=== PATIENT | male | born 1985 | race Two or more races ===

== ENCOUNTER 2017-02-16 10:16 | Emergency (ER) | payer OTHER ==
[~2017-02-16] VITALS: Ht 167.6 cm; Wt 74.8 kg
[2017-02-16 10:23] VITALS: BP 132/68
== END 2017-02-16 10:39 | disposition home or self-care (01) ==
LOC: ER 10:17
DX: M54.9 Dorsalgia, unspecified (principal); J06.9 Acute upper respiratory infection, unspecified; M79.604 Pain in right leg; F17.210 Nicotine dependence, cigarettes, uncomplicated
CPT/HCPCS: 99283; 99406; A4606; Z7610

== ENCOUNTER 2017-03-16 22:34 | Emergency (ER) | payer OTHER ==
[~2017-03-16] VITALS: Ht 175.3 cm; Wt 77.1 kg
[2017-03-16 22:38] VITALS: BP 134/86
== END 2017-03-16 23:03 | disposition home or self-care (01) ==
LOC: ER 22:36
DX: M54.5 Low back pain (principal); M79.661 Pain in right lower leg; F17.200 Nicotine dependence, unspecified, uncomplicated
CPT/HCPCS: A4606; Z7502; Z7610

== ENCOUNTER 2017-05-24 20:54 | Emergency (ER) | payer OTHER ==
[~2017-05-24] VITALS: Ht 175.3 cm; Wt 77.1 kg
[2017-05-24 21:10] VITALS: BP 143/90
== END 2017-05-24 22:46 | disposition home or self-care (01) ==
LOC: ER 20:54
DX: Z76.0 Encounter for issue of repeat prescription (principal); F17.200 Nicotine dependence, unspecified, uncomplicated
CPT/HCPCS: 99283; 99406; A4606; Z7610

== ENCOUNTER 2017-09-12 22:28 | Emergency (ER) | payer OTHER ==
[~2017-09-12] VITALS: Ht 180.3 cm; Wt 77.1 kg
[2017-09-12 22:32] VITALS: BP 127/81
[2017-09-12] MEDS ORDERED: HYDROCODONE/APAP 10/325MG 1 EA TABLET PO ONE (23:00)
[2017-09-12] MEDS ORDERED: ONDANSETRON 4 MG TAB.RAPDIS SL ONE (23:00)
[2017-09-12] MEDS ORDERED: ONDANSETRON 4 MG TAB.RAPDIS ONE (23:02)
[2017-09-12] MEDS ORDERED: HYDROCODONE/APAP 10/325MG 1 EA TABLET ONE (23:02)
== END 2017-09-12 23:13 | disposition home or self-care (01) ==
LOC: ER 22:28
DX: S80.11XA Contusion of right lower leg, initial encounter (principal); F17.200 Nicotine dependence, unspecified, uncomplicated; Z98.890 Other specified postprocedural states; W18.39XA Other fall on same level, initial encounter; Y93.66 Activity, soccer; Y92.89 Other specified places as the place of occurrence of the external cause; Y99.8 Other external cause status
CPT/HCPCS: A4606; Q0162; Z7610

== ENCOUNTER 2018-01-13 15:59 | Emergency (ER) | payer OTHER ==
[~2018-01-13] VITALS: Ht 180.3 cm; Wt 74.8 kg
[2018-01-13 16:07] VITALS: BP 151/81
[2018-01-13] MEDS ORDERED: IBUPROFEN 600 MG TABLET PO ONE (16:28)
[2018-01-13] MEDS: IBUPROFEN 600 MG TABLET PO ONE (16:34)
== END 2018-01-13 16:36 | disposition home or self-care (01) ==
LOC: ER 16:02
DX: M54.31 Sciatica, right side (principal); Z98.890 Other specified postprocedural states
CPT/HCPCS: 99283; A4606; Z7610

== ENCOUNTER 2018-08-08 16:07 | Emergency (ER) | payer MEDICAID, OTHER ==
[~2018-08-08] VITALS: Ht 177.8 cm; Wt 77.1 kg
[2018-08-08 16:44] VITALS: BP 143/91
[2018-08-08] MEDS ORDERED: ACETAMINOPHEN 325 MG TABLET ONE (17:47)
[2018-08-08] MEDS: ACETAMINOPHEN 325 MG TABLET PO ONE ×2 (17:49→17:55)
[2018-08-08 18:12] LABS: APPEARANCE,URINE Clear (CLEAR); BILIRUBIN,URINE Negative (NEGATIVE); BLOOD, URINE Negative Ery/uL (NEGATIVE); COLOR,URINE Yellow (YELLOW); KETONES,URINE Negative (NEGATIVE); LEUKOCYTE ESTERASE ,URINE Negative (NEGATIVE); NITRITE, URINE Negative (NEGATIVE); PH,URINE 5.5 (5.0-8.0); PROTEIN,URINE Negative (NEGATIVE); UGLUCOSE Negative (NEGATIVE); UROBILINOGEN,URINE 0.2 EU/dL (0.2)
== END 2018-08-08 18:31 | disposition home or self-care (01) ==
LOC: ER 16:13
DX: S39.83XA Other specified injuries of pelvis, initial encounter (principal); F10.10 Alcohol abuse, uncomplicated; F17.200 Nicotine dependence, unspecified, uncomplicated; Y90.9 Presence of alcohol in blood, level not specified; Z98.890 Other specified postprocedural states; Z60.2 Problems related to living alone; W23.0XXA Caught, crushed, jammed, or pinched between moving objects, initial encounter; Y93.89 Activity, other specified; Y92.000 Kitchen of unspecified non-institutional (private) residence as the place of occurrence of the external cause; Y99.8 Other external cause status
CPT/HCPCS: 76870-TC; 81000-TC

== ENCOUNTER 2018-11-01 13:22 | Emergency (ER) | payer MEDICAID, OTHER ==
[~2018-11-01] VITALS: Ht 177.8 cm; Wt 75.7 kg
[2018-11-01 13:51] VITALS: BP 148/94
--- NOTE | 2018-11-01 14:34 | NUR ---
For discharge Patient discharged to home in stable condition. Written and verbal after care instructions given. Patient verbalizes understanding of instruction.
== END 2018-11-01 14:33 | disposition home or self-care (01) ==
LOC: ER 13:22
DX: M79.18 Myalgia, other site (principal); G89.29 Other chronic pain; M79.651 Pain in right thigh; Z98.890 Other specified postprocedural states; F10.10 Alcohol abuse, uncomplicated; F17.200 Nicotine dependence, unspecified, uncomplicated; Y90.9 Presence of alcohol in blood, level not specified

== ENCOUNTER 2018-11-13 11:39 | Emergency (ER) | payer OTHER ==
[~2018-11-13] VITALS: Ht 175.3 cm; Wt 77.1 kg
[2018-11-13 12:06] VITALS: BP 127/100
--- NOTE | 2018-11-13 12:41 | NUR ---
Patient discharged to home in stable condition. Written and verbal after care instructions given. Patient verbalizes understanding of instruction.
== END 2018-11-13 12:40 | disposition home or self-care (01) ==
LOC: ER 11:39
DX: G89.29 Other chronic pain (principal); M79.604 Pain in right leg; F17.200 Nicotine dependence, unspecified, uncomplicated; Z98.890 Other specified postprocedural states

== ENCOUNTER 2018-12-04 13:55 | Emergency (ER) | payer OTHER ==
[~2018-12-04] VITALS: Ht 175.3 cm; Wt 74.8 kg
[2018-12-04 14:14] VITALS: BP 131/81
[2018-12-04] MEDS ORDERED: HYDROCODONE/APAP 5/325MG 1 EACH TABLET ONE (14:29)
[2018-12-04] MEDS ORDERED: HYDROCODONE/APAP 5/325MG 1 EACH TABLET PO ONE (14:30)
== END 2018-12-04 15:53 | disposition home or self-care (01) ==
LOC: ER 13:55
DX: G89.29 Other chronic pain (principal); M79.604 Pain in right leg; F17.200 Nicotine dependence, unspecified, uncomplicated; Z98.890 Other specified postprocedural states; W01.0XXA Fall on same level from slipping, tripping and stumbling without subsequent striking against object, initial encounter; Y93.89 Activity, other specified; Y92.89 Other specified places as the place of occurrence of the external cause; Y99.8 Other external cause status
CPT/HCPCS: 73552

== ENCOUNTER 2019-03-01 15:01 | Emergency (ER) | payer OTHER ==
[~2019-03-01] VITALS: Ht 175.3 cm; Wt 77.1 kg
[2019-03-01 15:08] VITALS: BP 134/83
--- NOTE | 2019-03-01 15:14 | NUR ---
PT CAME INTO THE ED COMPLAINING OF L LEG PAIN 01/19. PT AAOX4, VSS, BREATHING EVEN AND UNLABORED W/ NAD. PT CONNECTED TO THE MONITOR.
--- NOTE | 2019-03-01 15:41 | NUR ---
Patient discharged to home in stable condition. Written and verbal after care instructions given. Patient verbalizes understanding of instruction.
== END 2019-03-01 15:44 | disposition home or self-care (01) ==
LOC: ER 15:02
DX: G89.29 Other chronic pain (principal); M79.661 Pain in right lower leg; Z98.890 Other specified postprocedural states

== ENCOUNTER 2019-03-27 12:33 | Emergency (ER) | payer SELFPAY ==
[~2019-03-27] VITALS: Ht 177.8 cm; Wt 74.8 kg
[2019-03-27 12:39] VITALS: BP 147/91
--- NOTE | 2019-03-27 12:49 | NUR ---
MICHAEL FIGUEREDO AT BEDSIDE FOR EVAL.
--- NOTE | 2019-03-27 12:54 | NUR ---
Patient discharged to home in stable condition. Written and verbal after care instructions given. Patient verbalizes understanding of instruction.
== END 2019-03-27 12:57 | disposition home or self-care (01) ==
LOC: ER 12:40
DX: M54.5 Low back pain (principal); G89.29 Other chronic pain; F10.10 Alcohol abuse, uncomplicated; Y90.9 Presence of alcohol in blood, level not specified; Z98.890 Other specified postprocedural states

== ENCOUNTER 2019-04-04 13:08 | Emergency (ER) | payer SELFPAY ==
[~2019-04-04] VITALS: Ht 177.8 cm; Wt 74.8 kg
[2019-04-04 13:36] VITALS: BP 134/78
--- NOTE | 2019-04-04 13:40 | NUR ---
MICHAEL FIGUEREDO AT BEDSIDE FOR EVAL.
[2019-04-04] MEDS ORDERED: HYDROCODONE/APAP 5/325MG 1 EACH TABLET ONE (13:43)
[2019-04-04] MEDS ORDERED: HYDROCODONE/APAP 5/325MG 1 EACH TABLET PO ONE (14:00)
--- NOTE | 2019-04-04 14:06 | NUR ---
Patient discharged to home in stable condition. Written and verbal after care instructions given. Patient verbalizes understanding of instruction.
== END 2019-04-04 14:07 | disposition home or self-care (01) ==
LOC: ER 13:08
DX: M54.5 Low back pain (principal); G89.29 Other chronic pain; F10.10 Alcohol abuse, uncomplicated; Y90.9 Presence of alcohol in blood, level not specified; Z76.0 Encounter for issue of repeat prescription; Z98.890 Other specified postprocedural states

== ENCOUNTER 2019-04-22 16:54 | Emergency (ER) | payer MEDICAID, OTHER ==
[~2019-04-22] VITALS: Ht 175.3 cm; Wt 77.1 kg
[2019-04-22 17:13] VITALS: BP 158/93
[2019-04-22] MEDS ORDERED: HYDROCODONE/APAP 10/325MG 1 EA TABLET ONE (17:43)
[2019-04-22] MEDS ORDERED: HYDROCODONE/APAP 10/325MG 1 EA TABLET PO ONE (18:00)
== END 2019-04-22 17:48 | disposition home or self-care (01) ==
LOC: ER 17:01
DX: G89.29 Other chronic pain (principal); M79.604 Pain in right leg; Z98.890 Other specified postprocedural states

== ENCOUNTER 2019-06-25 12:36 | Emergency (ER) | payer OTHER ==
[~2019-06-25] VITALS: Ht 175.3 cm; Wt 77.1 kg
[2019-06-25 12:44] VITALS: BP 160/92
--- NOTE | 2019-06-25 13:06 | NUR ---
Patient discharged to home in stable condition. Written and verbal after care instructions given. Patient verbalizes understanding of instruction.
== END 2019-06-25 13:07 | disposition home or self-care (01) ==
LOC: ER 12:38
DX: G89.29 Other chronic pain (principal); M54.9 Dorsalgia, unspecified; Z76.0 Encounter for issue of repeat prescription; Z98.890 Other specified postprocedural states

== ENCOUNTER 2019-07-20 13:00 | Emergency (ER) | payer OTHER ==
[~2019-07-20] VITALS: Ht 170.2 cm; Wt 74.8 kg
[2019-07-20 13:04] VITALS: BP 124/81
[2019-07-20] MEDS ORDERED: HYDROCODONE/APAP 5/325MG TABLET ONE (13:20)
[2019-07-20] MEDS ORDERED: HYDROCODONE/APAP 5/325MG TABLET PO ONE (13:30)
== END 2019-07-20 13:24 | disposition home or self-care (01) ==
LOC: ER 13:04
DX: M25.551 Pain in right hip (principal); G89.29 Other chronic pain; Z98.890 Other specified postprocedural states; V49.69XA Unspecified car occupant injured in collision with other motor vehicles in traffic accident, initial encounter; Y93.89 Activity, other specified; Y92.413 State road as the place of occurrence of the external cause; Y99.8 Other external cause status

== ENCOUNTER 2019-08-26 15:23 | Emergency (ER) | payer OTHER ==
[~2019-08-26] VITALS: Ht 170.2 cm; Wt 74.8 kg
[2019-08-26 15:29] VITALS: BP 150/91
[2019-08-26] MEDS ORDERED: HYDROCODONE/APAP 5/325MG 1 EACH TABLET ONE (15:48)
--- NOTE | 2019-08-26 15:52 | NUR ---
INFORMED NOT TO DRIVE AND USE HEAVY MACHINERIES, PATIENT VERBALIZED UNDERSTANDING
[2019-08-26] MEDS ORDERED: HYDROCODONE/APAP 5/325MG 1 EACH TABLET PO ONE (16:00)
== END 2019-08-26 15:53 | disposition home or self-care (01) ==
LOC: ER 15:26
DX: M79.604 Pain in right leg (principal); G89.29 Other chronic pain; Z98.890 Other specified postprocedural states

== ENCOUNTER 2019-09-25 13:39 | Emergency (ER) | payer OTHER ==
[~2019-09-25] VITALS: Ht 177.8 cm; Wt 70.3 kg
[2019-09-25 13:51] VITALS: BP 119/81
[2019-09-25] MEDS ORDERED: HYDROCODONE/APAP 5/325MG 1 EACH TABLET ONE (15:06)
--- NOTE | 2019-09-25 15:15 | NUR ---
Patient discharged to home in stable condition. Written and verbal after care instructions given. Patient verbalizes understanding of instruction. Instructed not to drive.
[2019-09-25] MEDS ORDERED: HYDROCODONE/APAP 5/325MG 1 EACH TABLET PO ONE (15:30)
== END 2019-09-25 15:16 | disposition home or self-care (01) ==
LOC: ER 13:43
DX: M79.604 Pain in right leg (principal); G89.29 Other chronic pain; Z98.890 Other specified postprocedural states

== ENCOUNTER 2019-12-05 18:12 | Emergency (ER) | payer OTHER ==
[~2019-12-05] VITALS: Ht 175.3 cm; Wt 77.1 kg
[2019-12-05 18:22] VITALS: BP 126/78
--- NOTE | 2019-12-05 18:23 | NUR ---
LUIS CARLOS [employer] EXECUTIVE AT BEDSIDE FOR EVAL
[2019-12-05] MEDS ORDERED: HYDROCODONE/APAP 10/325MG TABLET ONE (18:34)
[2019-12-05] MEDS: HYDROCODONE/APAP 10/325MG TABLET PO ONE (18:37)
--- NOTE | 2019-12-05 18:37 | NUR ---
MEDICATED ORDERED,NO ADVERSE RXN NOTED
== END 2019-12-05 18:39 | disposition home or self-care (01) ==
LOC: ER 18:12
DX: G89.29 Other chronic pain (principal); M54.5 Low back pain; M79.661 Pain in right lower leg; Z76.0 Encounter for issue of repeat prescription; Z98.890 Other specified postprocedural states

== ENCOUNTER 2019-12-15 16:06 | Emergency (ER) | payer OTHER ==
[~2019-12-15] VITALS: Ht 180.3 cm; Wt 74.8 kg
--- NOTE | 2019-12-15 16:10 | NUR ---
ER PT CAME IN TO ER WITH CHEIF COMPLAINT OF R LEG PAIN 8. PER PT, HIS ONLY MEDICAL HX IS A PAST SURGERY OF R FEMUR WITH TITANIUM RODS PLACEMENT. NO OTHER HX IS PROVIDED BY THE PT. VS CHECKED. IN STABLE CONDITION.
--- NOTE | 2019-12-15 16:30 | NUR ---
SEEN BY PT WAS SEEN BY
[2019-12-15] MEDS ORDERED: HYDROCODONE/APAP 10/325MG TABLET ONE (16:37)
--- NOTE | 2019-12-15 16:45 | NUR ---
DISCHARGE Patient discharged to home in stable condition. Written and verbal after care instructions given. Patient verbalizes understanding of instruction. prescriptions and d/c paperworks provided to pt. instructed pt how to take his meds/prescriptions. educated pt regarding s/s of opioid overdose and when to use narcan. pt understood.
[2019-12-15 16:52] VITALS: BP 133/71
[2019-12-15] MEDS ORDERED: HYDROCODONE/APAP 10/325MG TABLET PO ONE (17:00)
== END 2019-12-15 16:58 | disposition home or self-care (01) ==
LOC: ER 16:07
DX: G89.29 Other chronic pain (principal); M54.5 Low back pain; Z76.0 Encounter for issue of repeat prescription; Z98.890 Other specified postprocedural states; W01.0XXA Fall on same level from slipping, tripping and stumbling without subsequent striking against object, initial encounter; Y93.89 Activity, other specified; Y92.89 Other specified places as the place of occurrence of the external cause; Y99.8 Other external cause status

== ENCOUNTER 2020-01-06 11:29 | Emergency (ER) | payer OTHER ==
[~2020-01-06] VITALS: Ht 175.3 cm; Wt 77.1 kg
[2020-01-06 11:35] VITALS: BP 130/91
[2020-01-06] MEDS ORDERED: HYDROCODONE/APAP 5/325MG TABLET ONE (12:22)
[2020-01-06] MEDS: HYDROCODONE/APAP 5/325MG TABLET PO ONE (12:24)
== END 2020-01-06 12:40 | disposition home or self-care (01) ==
LOC: ER 11:31
DX: G89.29 Other chronic pain (principal); M54.9 Dorsalgia, unspecified; Z76.0 Encounter for issue of repeat prescription; Z98.890 Other specified postprocedural states; Z60.2 Problems related to living alone

== ENCOUNTER 2020-01-17 11:38 | Emergency (ER) | payer OTHER ==
[~2020-01-17] VITALS: Ht 172.7 cm; Wt 75.7 kg
--- NOTE | 2020-01-17 11:48 | NUR ---
SEEN AND EVALUATED BY MD WITH NEW ORDER OF NORCO NOTED
[2020-01-17] MEDS ORDERED: HYDROCODONE/APAP 5/325MG TABLET PO ONE (12:00)
[2020-01-17] MEDS ORDERED: HYDROCODONE/APAP 5/325MG TABLET ONE (12:16)
[2020-01-17 12:19] VITALS: BP 127/86
== END 2020-01-17 12:19 | disposition home or self-care (01) ==
LOC: ER 11:41
DX: G89.29 Other chronic pain (principal); M54.5 Low back pain; Z76.0 Encounter for issue of repeat prescription; Z98.890 Other specified postprocedural states; Z60.2 Problems related to living alone

== ENCOUNTER 2020-01-31 08:21 | Emergency (ER) | payer OTHER ==
[~2020-01-31] VITALS: Ht 177.8 cm; Wt 77.1 kg
--- NOTE | 2020-01-31 08:25 | NUR ---
ER BED 11 PT C/O R HIP PAIN 10/10 AND LOWER BACK PAIN. PT STATES HE HAD A HX OF TITANIUM RODS PLACED ON THE R HIP AND HERNIATED DISC. PT REQUESTING PRESCRIPTION FOR NORCO. VS CHECKED. AWAITING MD THOMPSON.
[2020-01-31 08:48] VITALS: BP 131/77
--- NOTE | 2020-01-31 08:48 | NUR ---
Patient discharged to home in stable condition. Written and verbal after care instructions given. Patient verbalizes understanding of instruction.
== END 2020-01-31 08:49 | disposition home or self-care (01) ==
LOC: ER 08:23
DX: G89.29 Other chronic pain (principal); M54.5 Low back pain; Z76.0 Encounter for issue of repeat prescription; Z98.890 Other specified postprocedural states; Z60.2 Problems related to living alone

== ENCOUNTER 2020-03-18 22:45 | Emergency (ER) | payer OTHER ==
[~2020-03-18] VITALS: Ht 175.3 cm; Wt 77.1 kg
--- NOTE | 2020-03-18 23:10 | NUR ---
ALEJANDRA 860 FROM HOME FOR C/O N/V/D SINCE AM. PT AAOX4. PT STATES THAT HE HAD "10 EPISODES OF DIARRHEA AND VOMITING TODAY". PT HAS 20G RIGHT AC. PT VSS, BREATHING EVENLY AND UNLABORED. PT HOOKED ONTO THE MONITOR AND POX. WILL CONTINUE TO MONITOR
--- NOTE | 2020-03-18 23:10 | NUR ---
BLOOD COLLECTED AND SENT TO LAB
[2020-03-18] MEDS ORDERED: MORPHINE SULFATE INJ 4 MG/ML DISP.SYRIN ONE (23:26)
[2020-03-18] MEDS ORDERED: ONDANSETRON HCL/PF 4 MG/2 ML VIAL ONE (23:26)
[2020-03-18 23:28] LABS: BASOPHILS # (AUTO) 0.1 /CMM (0.0-0.2); BASOPHILS % (AUTO) 0.7 % (0.0-2.0); EOSINOPHILS % (AUTO) 1.1 % (0.0-6.0); HEMATOCRIT 47 % (39-51); HEMOGLOBIN 15.5 g/dL (13.5-17.5); LYMPHOCYTES # (AUTO) 1.6 /CMM (0.8-4.8); LYMPHOCYTES % (AUTO) 16.6 % (20.0-44.0); MEAN CORPUSCULAR HGB CONC 33 g/dl (31.0-36.0); MEAN CORPUSCULAR VOLUME 96 fL (80-96); MONOCYTES # (AUTO) 0.6 /CMM (0.1-1.30); MONOCYTES % (AUTO) 6.6 % (2.0-12.0); NEUTROPHILS # (AUTO) 7.1 /CMM (1.8-8.9); PLATELET COUNT (AUTO) 364 /CMM (150-450); RED BLOOD CELL COUNT(AUTO) 4.87 MIL/uL (4.5-6.0); WHITE BLOOD COUNT (AUTO) 9.5 K/uL (4.3-11.0)
[2020-03-18] MEDS ORDERED: MORPHINE SULFATE INJ 2 MG/ML DISP.SYRIN IV ONE (23:30)
[2020-03-18] MEDS ORDERED: IV NS 0.9% 1,000 ML BAG IV ONE (23:30)
[2020-03-18] MEDS ORDERED: ONDANSETRON HCL/PF 4 MG/2 ML VIAL IVP ONE (23:30)
--- NOTE | 2020-03-18 23:42 | NUR ---
Note jeevananh in EDM - 03/18/20 at 2344 by DAMIR BIBRA 860 FROM HOME FOR C/O N/V/D SINCE AM. PT AAOX4. PT STATES THAT HE HAD "10 EPISODES OF DIARRHEA AND VOMITING TODAY". PT HAS 20G RIGHT AC. PT VSS, BREATHING EVENLY AND UNLABORED. PT HOOKED ONTO THE MONITOR AND POX. WILL CONTINUE TO MONITOR
[2020-03-18 23:47] LABS: CALCIUM, SERUM 10.2 mg/dL (8.5-10.1); POTASSIUM 3.9 mmol/L (3.5-5.1)
[2020-03-18 23:53] LABS: ALBUMIN 4.4 g/dL (3.4-5.0); BILIRUBIN,DIRECT 0.1 mg/dL (0.0-0.2); BILIRUBIN,TOTAL 0.6 mg/dL (0.2-1.0); TOTAL PROTEIN, SERUM 8.5 g/dL (6.4-8.2)
--- NOTE | 2020-03-19 00:30 | NUR ---
Patient discharged to home in stable condition. Written and verbal after care instructions given. Patient verbalizes understanding of instruction. PT ambulatory with a steady gait. IV removed. Catheter intact and site benign. Pressure and 4x4 applied to site. No bleeding noted.
[2020-03-19 00:33] VITALS: BP 150/99
== END 2020-03-19 00:34 | disposition home or self-care (01) ==
LOC: ER 22:46
DX: K52.89 Other specified noninfective gastroenteritis and colitis (principal); R11.2 Nausea with vomiting, unspecified; Z98.890 Other specified postprocedural states; Z60.2 Problems related to living alone
CPT/HCPCS: 36415; 80048; 80076; 83690; 85025; 96361; 96374; 96375; 99284; J2270; J2405; J7030 ×2

== ENCOUNTER 2020-04-27 14:51 | Emergency (ER) | payer MEDICAID, OTHER ==
[~2020-04-27] VITALS: Ht 182.9 cm; Wt 74.8 kg
[2020-04-27 15:01] VITALS: BP 134/77
[2020-04-27] MEDS ORDERED: HYDROCODONE/APAP 10/325MG TABLET ONE (15:12)
--- NOTE | 2020-04-27 15:14 | NUR ---
Patient discharged to home in stable condition. Written and verbal after care instructions given. Patient verbalizes understanding of instruction.
[2020-04-27] MEDS ORDERED: HYDROCODONE/APAP 10/325MG TABLET PO ONE (15:30)
== END 2020-04-27 15:15 | disposition home or self-care (01) ==
LOC: ER 14:53
DX: G89.29 Other chronic pain (principal); M79.604 Pain in right leg; F17.200 Nicotine dependence, unspecified, uncomplicated; Z98.890 Other specified postprocedural states; Z60.2 Problems related to living alone

== ENCOUNTER 2020-08-17 15:36 | Emergency (ER) | payer MEDICAID ==
[~2020-08-17] VITALS: Ht 175.3 cm; Wt 70.8 kg
[2020-08-17 15:48] VITALS: BP 135/80
--- NOTE | 2020-08-17 16:02 | NUR ---
THE PATIENT BIBS FOR C/O LOWER BACK PAIN, REQUESTING NORCO REFILL, STATES PAIN MANAGEMENT MD APPT IS SEPTEMBER 04. RATES PAIN 11/19. WILL CONTINUE TO MONITOR THE PATIENT.
[2020-08-17] MEDS ORDERED: HYDR-3980 PO (16:42)
[2020-08-17] MEDS ORDERED: HYDROCODONE/APAP 10/325MG TABLET ONE (16:44)
[2020-08-17] MEDS: HYDROCODONE/APAP 10/325MG TABLET PO ONE (16:47)
--- NOTE | 2020-08-17 16:58 | NUR ---
Patient discharged to home in stable condition. Written and verbal after care instructions given. Patient verbalizes understanding of instruction.
== END 2020-08-17 16:58 | disposition home or self-care (01) ==
LOC: ER 15:38
DX: Z76.0 Encounter for issue of repeat prescription (principal); G89.29 Other chronic pain; M54.5 Low back pain; F17.200 Nicotine dependence, unspecified, uncomplicated; Z98.890 Other specified postprocedural states; Z60.2 Problems related to living alone

== ENCOUNTER 2020-08-30 11:28 | Emergency (ER) | payer MEDICAID ==
[~2020-08-30] VITALS: Ht 175.3 cm; Wt 79.4 kg
[~2020-08-30 11:28] MED LIST: HYDR-3980 PO
[2020-08-30 11:44] VITALS: BP 133/94
[2020-08-30] MEDS ORDERED: HYDROCODONE/APAP 10/325MG TABLET ONE (11:55)
[2020-08-30] MEDS: HYDROCODONE/APAP 10/325MG TABLET PO ONE (11:56)
[2020-08-30] MEDS ORDERED: HYDR-3980 PO (11:58)
== END 2020-08-30 12:06 | disposition home or self-care (01) ==
LOC: ER 11:31
DX: G89.29 Other chronic pain (principal); M54.5 Low back pain; Z76.0 Encounter for issue of repeat prescription; F17.200 Nicotine dependence, unspecified, uncomplicated; Z98.890 Other specified postprocedural states; Z60.2 Problems related to living alone; Z79.899 Other long term (current) drug therapy

== ENCOUNTER 2020-09-19 18:17 | Emergency (ER) | payer MEDICAID ==
[~2020-09-19] VITALS: Ht 175.3 cm; Wt 72.6 kg
[2020-09-19 18:36] VITALS: BP 147/105
[2020-09-19] MEDS ORDERED: HYDROCODONE/APAP 10/325MG TABLET ONE (18:48)
--- NOTE | 2020-09-19 18:55 | NUR ---
[place] 10/325mg given via PO, tolerated well, as ordered by
--- NOTE | 2020-09-19 18:55 | NUR ---
Patient discharged to home in stable condition. Written and verbal after care instructions given. Patient verbalizes understanding of instruction.
[2020-09-19] MEDS ORDERED: HYDROCODONE/APAP 10/325MG TABLET PO ONE (19:00)
== END 2020-09-19 18:55 | disposition home or self-care (01) ==
LOC: ER 18:24
DX: G89.29 Other chronic pain (principal); M79.604 Pain in right leg; F17.200 Nicotine dependence, unspecified, uncomplicated; Z98.890 Other specified postprocedural states; Z60.2 Problems related to living alone; Z79.899 Other long term (current) drug therapy

== ENCOUNTER 2020-12-14 10:39 | Emergency (ER) | payer MEDICAID ==
[~2020-12-14] VITALS: Ht 177.8 cm; Wt 68.0 kg
[2020-12-14 10:56] VITALS: BP 167/96
--- NOTE | 2020-12-14 11:00 | NUR ---
The patient bibs for medrefill norco 10/325mg. In room air and denies SOB. Respiration regular and unlabored. Will continue to monitor the patient.
[2020-12-14] MEDS ORDERED: CYCL5TAB PO (11:18)
[2020-12-14] MEDS ORDERED: HYDROCODONE/APAP 5/325MG TABLET ONE (11:20)
--- NOTE | 2020-12-14 11:25 | NUR ---
Patient discharged to home in stable condition. Written and verbal after care instructions given. Patient verbalizes understanding of instruction.
[2020-12-14] MEDS ORDERED: HYDROCODONE/APAP 5/325MG TABLET PO ONE (11:30)
== END 2020-12-14 11:25 | disposition home or self-care (01) ==
LOC: ER 10:54
DX: G89.29 Other chronic pain (principal); M79.604 Pain in right leg; Z76.0 Encounter for issue of repeat prescription; F17.200 Nicotine dependence, unspecified, uncomplicated; Z98.890 Other specified postprocedural states; Z60.2 Problems related to living alone; Z79.899 Other long term (current) drug therapy

== ENCOUNTER 2021-01-11 08:50 | Emergency (ER) | payer MEDICAID ==
[~2021-01-11] VITALS: Ht 175.3 cm; Wt 72.6 kg
[~2021-01-11 08:50] MED LIST changes: +CYCL5TAB PO
[2021-01-11 08:55] VITALS: BP 138/76
[2021-01-11] MEDS ORDERED: HYDROCODONE/APAP 10/325MG TABLET PO ONE (09:00)
[2021-01-11] MEDS ORDERED: HYDROCODONE/APAP 10/325MG TABLET ONE (09:02)
[2021-01-11] MEDS ORDERED: CYCL5TAB PO (09:04)
--- NOTE | 2021-01-11 09:05 | NUR ---
Pt took medication and said "I can go now I dont need the papers "- verbal ACI given "Home ambulatory NAD
== END 2021-01-11 09:07 | disposition home or self-care (01) ==
LOC: ER 08:53
DX: G89.29 Other chronic pain (principal); M79.604 Pain in right leg; Z76.0 Encounter for issue of repeat prescription; F17.200 Nicotine dependence, unspecified, uncomplicated; Z98.890 Other specified postprocedural states; Z60.2 Problems related to living alone; Z79.899 Other long term (current) drug therapy

== ENCOUNTER 2021-02-06 21:52 | Emergency (ER) | payer MEDICAID ==
[~2021-02-06] VITALS: Ht 175.3 cm; Wt 72.6 kg
[2021-02-06 23:05] VITALS: BP 128/73
[2021-02-06] MEDS ORDERED: HYDR-3972 PO (23:12)
== END 2021-02-06 23:18 | disposition home or self-care (01) ==
LOC: ER 21:55
DX: G89.29 Other chronic pain (principal); Z76.0 Encounter for issue of repeat prescription; F17.200 Nicotine dependence, unspecified, uncomplicated; Z98.890 Other specified postprocedural states; Z60.2 Problems related to living alone; Z79.899 Other long term (current) drug therapy

== ENCOUNTER 2021-08-09 13:24 | Emergency (ER) | payer MEDICAID ==
[~2021-08-09] VITALS: Ht 175.3 cm; Wt 68.0 kg
[~2021-08-09 13:24] MED LIST changes: +HYDR-3972 PO
[2021-08-09 13:29] VITALS: BP 142/72
--- NOTE | 2021-08-09 13:29 | NUR ---
BIB C/O SORE THROAT AND CHRONIC BACK PAIN, TAKE MOTRIN AT HOME AND HAS NO RELIEF. AWAITING MD THOMPSON.
--- NOTE | 2021-08-09 13:32 | NUR ---
AT BEDSIDE FOR EVAL.
[2021-08-09] MEDS ORDERED: HYDR-4275 PO (13:42)
--- NOTE | 2021-08-09 13:45 | NUR ---
Patient discharged to home in stable condition. Written and verbal after care instructions given. Patient verbalizes understanding of instruction.
== END 2021-08-09 13:46 | disposition home or self-care (01) ==
LOC: ER 13:29
DX: G89.29 Other chronic pain (principal); M54.9 Dorsalgia, unspecified; F17.200 Nicotine dependence, unspecified, uncomplicated; Z87.39 Personal history of other diseases of the musculoskeletal system and connective tissue; Z60.2 Problems related to living alone; Z79.899 Other long term (current) drug therapy

== ENCOUNTER 2022-01-26 00:23 | Emergency (ER) | payer MEDICAID ==
[~2022-01-26] VITALS: Ht 170.2 cm; Wt 70.3 kg
[~2022-01-26 00:23] MED LIST changes: +HYDR-4275 PO
[2022-01-26 00:33] VITALS: BP 125/76
[2022-01-26] MEDS ORDERED: KETOROLAC TROMETHAMINE INJ 30 MG/ML VIAL ONE (00:35)
--- NOTE | 2022-01-26 00:53 | NUR ---
Patient eloped from facility. ER MD notified.
[2022-01-26] MEDS ORDERED: KETOROLAC TROMETHAMINE INJ 60 MG/2 ML VIAL IM ONE (01:00)
== END 2022-01-26 01:16 | disposition left against medical advice (07) ==
LOC: ER 00:24
DX: M79.641 Pain in right hand (principal); F17.200 Nicotine dependence, unspecified, uncomplicated; Z60.2 Problems related to living alone; Z79.899 Other long term (current) drug therapy
CPT/HCPCS: J1885

== ENCOUNTER 2022-03-08 18:09 | Emergency (ER) | payer MEDICAID ==
[~2022-03-08] VITALS: Ht 177.8 cm; Wt 72.6 kg
[2022-03-08 18:15] VITALS: BP 141/78
--- NOTE | 2022-03-08 18:20 | NUR ---
BIBA [id number] "Flu like symptoms/Body aches. Family sick w/same". PLACED ON BED, AAOX4, BREATHING EVEN AND UN LABORED SATURATING AT 97%RA.
[2022-03-08] MEDS ORDERED: HYDR-3976 PO (19:54)
[2022-03-08] MEDS ORDERED: HYDROCODONE/APAP 10/325MG TABLET ONE (19:59)
[2022-03-08] MEDS ORDERED: HYDROCODONE/APAP 10/325MG TABLET PO ONE (20:00)
--- NOTE | 2022-03-08 20:10 | NUR ---
Patient discharged to home in stable condition. Written and verbal after care instructions given. Patient verbalizes understanding of instruction.
== END 2022-03-08 20:10 | disposition home or self-care (01) ==
LOC: ER 18:17
DX: M54.9 Dorsalgia, unspecified (principal); J11.1 Influenza due to unidentified influenza virus with other respiratory manifestations; F17.200 Nicotine dependence, unspecified, uncomplicated; Z60.2 Problems related to living alone; Z79.899 Other long term (current) drug therapy

== ENCOUNTER 2025-02-12 01:13 | Emergency (ER) | payer MEDICAID ==
[~2025-02-12] VITALS: Ht 177.8 cm; Wt 56.7 kg
[~2025-02-12 01:13] MED LIST changes: +HYDR-3976 PO
[2025-02-12 01:22] VITALS: BP 124/78; TEMP 98.1; O2SAT 98
[2025-02-12] MEDS ORDERED: LIDOCAINE VISCOUS 2% UD 15 ML UDC ONE (01:36)
[2025-02-12] MEDS ORDERED: MAG HYDROX/AL HYDROX/SIMETH 30 ML UDC ONE (01:36)
[2025-02-12] MEDS: LIDOCAINE VISCOUS 2% UD 15 ML UDC MM ONE (01:41)
[2025-02-12] MEDS: MAG HYDROX/AL HYDROX/SIMETH 30 ML UDC PO ONE (01:41)
== END 2025-02-12 01:41 | disposition home or self-care (01) ==
LOC: ER 01:14
DX: R10.13 Epigastric pain (principal); F17.200 Nicotine dependence, unspecified, uncomplicated; Z79.891 Long term (current) use of opiate analgesic; Z60.2 Problems related to living alone